=== PATIENT | female | born 1965 | race Caucasian/White ===

== ENCOUNTER → 2016-09-01 | Outpatient (CLI) | payer OTHER ==
--- NOTE | 2016-09-01 09:41 | REPMRS ---
Patient History The patient states she had a clinical breast exam in No known family history of cancer. Taking estrogen for 1 month. Digital Woman Screen Mammo: September 01, 2016 - Exam #: [id number] Bilateral CC and MLO view(s) were taken. Technologist: Codie Harrison, Technologist Prior study comparison: August 10, 2015, digital woman screen mammo performed at [facility]. March 19, 2014, right breast digital mammo diagnostic unilateral, performed at [facility]. FINDINGS: The breast tissue is heterogeneously dense. This may lower the sensitivity of mammography. There is a fairly symmetric fibroglandular pattern in both breasts. There has been no interval development of masses, areas of architectural distortion or clusters of microcalcifications typical of malignancy. No significant changes when compared with prior studies. ASSESSMENT: BI-RADS/ACR category 2 mammogram. Benign finding(s). Recommendation Routine screening mammogram of both breasts in 1 year (for women over age 40). This mammogram was interpreted with the aid of an FDA-approved computer-aided dectection system. Electronically Signed By: Camacho Joshi MD 09/01/16 0912
== END ==
LOC: M WHC 08:27
PROVIDERS: ATTEND Nurse Practitioner Family
DX: Z12.31 Encounter for screening mammogram for malignant neoplasm of breast (principal)

== ENCOUNTER → 2016-11-21 | Outpatient (CLI) | payer OTHER ==
[~2016-11-21] VITALS: Ht 165.1 cm; Wt 62.1 kg
[~2016-11-21] MED LIST: LIDOCAINE 2% INJ 100 MG/5 ML SDV (FOR ANES.) As Ordered ONE; NS 1,000 ML IV ONE; PROPOFOL 500 MG/50 ML VIAL As Ordered ONE; [UNRECOGNIZED DRUG - CODE] TD; ePHEDrine SULFATE 25 MG/5 ML(5MG/ML) SYRINGE As Ordered ONE
--- NOTE | 2016-11-21 13:18 | ROOR ---
Patient Name: Haylee Price Procedure Date: 11/21/2016 12:46 PM Date of : 1965 Age: 51 Room: [facility] Gender: Female Note Status: Finalized Procedure: Colonoscopy to Cecum + Cold and Hot Snare Polypectomy Indications: Screening for colorectal malignant neoplasm Providers: Brayden Hilario MD Referring MD: NEREYDA OCAMPO NP Requesting Provider: Medicines: Monitored Anesthesia Care Complications: No immediate complications. Procedure: Pre-Anesthesia Assessment: - The heart rate, respiratory rate, oxygen saturations, blood pressure, adequacy of pulmonary ventilation, and response to care were monitored throughout the procedure. The Colonoscope was introduced through the anus and advanced to the cecum, identified by appendiceal orifice and ileocecal valve. The colonoscopy was performed without difficulty. The patient tolerated the procedure well. The quality of the bowel preparation was excellent. Findings: The perianal and digital rectal examinations were normal. A large polyp was found in the rectum. The polyp was sessile. The polyp was removed with a hot snare. Polyp resection was incomplete. The resected tissue was retrieved. A medium polyp was found at 30 cm proximal to the anus. The polyp was pedunculated. The polyp was removed with a hot snare. Resection and retrieval were complete. The exam was otherwise without abnormality on direct and retroflexion views. Impression: - One large polyp in the rectum, removed with a hot snare. Incomplete resection. Resected tissue retrieved. - One medium polyp at 30 cm proximal to the anus, removed with a hot snare. Resected and retrieved. - The examination was otherwise normal on direct and retroflexion views. - The exam was otherwise normal to the cecum. Recommendation: - Patient has a contact number available for emergencies. The signs and symptoms of potential delayed complications were discussed with the patient. Return to normal activities tomorrow. Written discharge instructions were provided to the patient. - High fiber diet. - Discharge patient to home. - Continue present medications. - Await pathology results. - Telephone GI clinic for pathology results in 1 week. - Check Portal Online for Path Results.([email or web address]) - Refer to a surgeon at appointment to be scheduled. Brayden Hilario MD Brayden Hilario MD 11/21/2016 1:18:23 PM This report has been signed electronically. Number of Addenda: 0 Note Initiated On: 11/21/2016 12:46 PM Estimated Blood Loss: Estimated blood loss: none.
[2016-11-21 13:50] VITALS: BP 134/68
== END | disposition home or self-care (01) ==
LOC: M OPP 12:15
PROVIDERS: ATTEND Internal Medicine Gastroenterology
DX: Z12.11 Encounter for screening for malignant neoplasm of colon (principal); D12.8 Benign neoplasm of rectum; D12.5 Benign neoplasm of sigmoid colon; Z79.899 Other long term (current) drug therapy

== ENCOUNTER → 2016-12-16 | Day surgery (SDC) | payer OTHER ==
[~2016-12-16] VITALS: Ht 160 cm; Wt 62.6 kg
[~2016-12-16] MED LIST changes: +GLYCOPYRROLATE INJ 0.2 MG/ML 2 ML VIAL As Ordered ONE; +KETOROLAC 60 MG/2 ML VIAL (J1885) As Ordered ONE; +LIDOCAINE W/EPINEPHRINE 1% 20ML VIAL As Ordered ONE; +LR 1,000 ML IV ONE; +LR 1,000 ML IV SCH; +METOCLOPRAMIDE INJ 10MG/2ML VIAL (J2765) IV PRN; +MIDAZOLAM INJ 2 MG/2 ML VIAL (J2250) As Ordered ONE; +MORPHINE 2 MG/ML 1ML SYRINGE IV PRN; +NORCO, ANEXSIA 5/325MG TABLET (HYDROcodone/ACETAMINOPHEN) PO PRN; +NORCOTAB PO; -NS 1,000 ML IV ONE; +ONDANSETRON 4MG/2ML VIAL (J2405) As Ordered ONE; +ONDANSETRON 4MG/2ML VIAL (J2405) IV PRN; +PERCOCET 5MG/325MG TAB As Ordered ONE; +PROPOFOL 200 MG/20 ML VIAL As Ordered ONE; -PROPOFOL 500 MG/50 ML VIAL As Ordered ONE; +cefoTEtan INJ 2GM VIAL (S0074) As Ordered ONE; +fentaNYL 100 MCG/2 ML INJECTION (J3010) As Ordered ONE
[2016-12-16] MEDS: fentaNYL 100 MCG/2 ML INJECTION (J3010) IV PRN ×3 (12:57→13:11)
[2016-12-16] MEDS: PERCOCET 5MG/325MG TAB PO PRN ×2 (12:59→13:56)
[2016-12-16 15:30] VITALS: BP 110/68
--- NOTE | 2016-12-18 07:06 | RO ---
DATE OF PROCEDURE: 12/16/2016 PREOPERATIVE DIAGNOSIS: Rectal adenoma with high-grade dysplasia. POSTOPERATIVE DIAGNOSIS: Rectal adenoma with high-grade dysplasia. PROCEDURE PERFORMED: Transanal excision of 4 cm rectal polyp. SURGEON: Cirilo Rojas MD HOSPITAL ADMITTING CLERK: ANESTHESIA: Spinal. INDICATIONS FOR THE PROCEDURE: Patient is a 51-year-old woman who had undergone a initial routine screening mammogram and was found to have a large sessile polyp in the rectum. Biopsies were obtained that showed some high-grade dysplasia in a background of adenomatous tissue. The polyp is palpable on the left posterior wall of the rectum and she is now for a transanal excision of this polyp. OPERATIVE PROCEDURE: The patient had a subarachnoid block anesthetic placed. She was placed in a lithotomy position with her lower extremities in padded leg holders. The perineum was prepped and draped in a sterile fashion. Palpation revealed a flat fleshy mass primarily posteriorly, but also slightly to the left of the midline on the back wall of the rectum. It was possible to feel above the superior aspect of the polyp and to pull the lesion inferiorly somewhat. A Brooks anal speculum was inserted and it was possible to identify the lesion readily. This appeared amendable to a transanal excision. I injected approximately 10 mL of 1% Xylocaine with epinephrine into the tissues around and beneath the polyp to aid in hemostasis. Then, using handheld retractors, the right and subsequently left edge and the inferior border of the polyp were identified and incised with the cautery. Some sharp dissection was performed with Metzenbaum scissors in several areas. As the dissection was carried superiorly, a #3-0 Vicryl suture was placed in the mucosa just above the polyp to margaux this. The dissection carried across the superior aspect of the polyp and the entire lesion was elevated off of the underlying tissue and removed. At the most distal part of the polyp, actually just above the most distal part of the polyp a small portion of the muscle tissue of the rectal wall was excised down to the underlying fibrofatty tissue. At this point, the patient was given 2 grams of cefotetan for antibiotic coverage. The polyp was laid out on the back table and appeared to be approximately 4 cm in maximal diameter. The polyp was soft and fleshy and there was no evidence of ulceration. This was sent for permanent pathology. The wound was inspected and hemostasis was ensured with cautery. There did not appear to be any residual polyp at the edges of the wound. The deeper portions of the tissues of the rectal wall were approximated with some buried sutures of #3-0 chromic. The mucosa was closed transversely then with multiple interrupted simple sutures of #3-0 chromic and #3-0 Vicryl. The final inspection revealed a good closure with no bleeding. The patient tolerated the procedure well without apparent complication. She was transported to the recovery room in stable condition.
== END | disposition home or self-care (01) ==
LOC: M SDC 07:24
PROVIDERS: ATTEND Surgery
DX: D37.5 Neoplasm of uncertain behavior of rectum (principal); K62.1 Rectal polyp
CPT/HCPCS: 45171; 88305; J1885; J2250; J2405; J3010

== ENCOUNTER → 2017-05-31 | Outpatient (REF) | payer OTHER ==
[~2017-05-31] MED LIST changes: -GLYCOPYRROLATE INJ 0.2 MG/ML 2 ML VIAL As Ordered ONE; -KETOROLAC 60 MG/2 ML VIAL (J1885) As Ordered ONE; -LIDOCAINE 2% INJ 100 MG/5 ML SDV (FOR ANES.) As Ordered ONE; -LIDOCAINE W/EPINEPHRINE 1% 20ML VIAL As Ordered ONE; -LR 1,000 ML IV ONE; -LR 1,000 ML IV SCH; -METOCLOPRAMIDE INJ 10MG/2ML VIAL (J2765) IV PRN; -MIDAZOLAM INJ 2 MG/2 ML VIAL (J2250) As Ordered ONE; -MORPHINE 2 MG/ML 1ML SYRINGE IV PRN; -NORCO, ANEXSIA 5/325MG TABLET (HYDROcodone/ACETAMINOPHEN) PO PRN; -ONDANSETRON 4MG/2ML VIAL (J2405) As Ordered ONE; -ONDANSETRON 4MG/2ML VIAL (J2405) IV PRN; -PERCOCET 5MG/325MG TAB As Ordered ONE; -PROPOFOL 200 MG/20 ML VIAL As Ordered ONE; -cefoTEtan INJ 2GM VIAL (S0074) As Ordered ONE; -ePHEDrine SULFATE 25 MG/5 ML(5MG/ML) SYRINGE As Ordered ONE; -fentaNYL 100 MCG/2 ML INJECTION (J3010) As Ordered ONE
== END ==
LOC: M SFHCLERA 09:36
PROVIDERS: ATTEND Dermatology
DX: D36.11 Benign neoplasm of peripheral nerves and autonomic nervous system of face, head, and neck (principal)

== ENCOUNTER → 2017-09-13 | Outpatient (CLI) | payer OTHER | LOC: M WHC 08:24 | DX: Z12.31 Encounter for screening mammogram for malignant neoplasm of breast (principal) ==

== ENCOUNTER 2018-03-05 06:46 | Day surgery (SDC) | payer OTHER ==
[2018-03-05] MEDS: NS 1,000 ML IV (06:00)
[2018-03-05] MEDS ORDERED: LIDOCAINE 2% INJ 100 MG/5 ML SDV (FOR ANES.) As Ordered (07:38)
[2018-03-05] MEDS ORDERED: PROPOFOL 500 MG/50 ML VIAL As Ordered (07:38)
== END 2018-03-05 08:33 | disposition home or self-care (01) ==
LOC: M OPP 06:46
DX: Z86.03 Personal history of neoplasm of uncertain behavior (principal); K64.0 First degree hemorrhoids; K62.89 Other specified diseases of anus and rectum; M54.2 Cervicalgia; Z90.710 Acquired absence of both cervix and uterus; Z79.890 Hormone replacement therapy; Z09 Encounter for follow-up examination after completed treatment for conditions other than malignant neoplasm
CPT/HCPCS: 45380

== ENCOUNTER 2018-06-12 10:30 | Emergency (ER) | payer OTHER ==
[2018-06-12 11:14] LABS: BASO % 0.4 % (0.0-1.0); HEMATOCRIT 39.2 % (36.0-47.0); HEMOGLOBIN 13.2 g/dl (12.0-15.5); IMMATURE GRANULOCYTE % 0.3 % (0-3.0); LYMPH # 1.4 10^3/uL (1.5-4.5); LYMPH % 13.4 % (24.0-44.0); MEAN CORPUSCULAR HEMOGLOBIN 29.3 pg (27.0-33.0); MEAN CORPUSCULAR HGB CONC 33.7 g/dl (32.0-36.5); MEAN CORPUSCULAR VOLUME 86.9 fl (80.0-96.0); MONO # 0.5 10^3/uL (0.0-0.8); MONO % 4.9 % (0.0-5.0); NEUTROPHILS # 8.7 10^3/uL (1.8-7.7); PLATELET COUNT, AUTOMATED 262 10^3/uL (150-450); RED BLOOD COUNT 4.51 10^6/uL (4.00-5.40); RED CELL DISTRIBUTION WIDTH 12.2 % (11.5-14.5); WHITE BLOOD COUNT 10.7 10^3/uL (4.0-10.0)
[2018-06-12 11:45] LABS: ALBUMIN 3.8 GM/DL (3.2-5.2); ALBUMIN/GLOBULIN RATIO 1.12 (1.00-1.93); ALKALINE PHOSPHATASE 64 U/L (45-117); ALT/SGPT 17 U/L (12-78); ANION GAP 9 MEQ/L (8-16); AST/SGOT 13 U/L (7-37); BILIRUBIN,DIRECT 0.2 MG/DL (0.0-0.2); BILIRUBIN,TOTAL 0.6 MG/DL (0.2-1.0); BLOOD UREA NITROGEN 21 MG/DL (7-18); CALCIUM LEVEL 8.4 MG/DL (8.5-10.1); CARBON DIOXIDE LEVEL 25 MEQ/L (21-32); CHLORIDE LEVEL 106 MEQ/L (98-107); CK-MB VALUE MASS < 1.0 NG/ML (<3.6); CPK CREATINE PHOSPHOKINASE 64 U/L (26-192); CREATININE FOR GFR 0.55 MG/DL (0.55-1.30); FREE T4 1.28 NG/DL (0.76-1.46); GLOMERULAR FILTRATION RATE > 60.0 (>51); GLUCOSE, FASTING 96 MG/DL (70-100); MB/CK RELATIVE INDEX 1.56 (< OR =4); POTASSIUM SERUM 3.2 MEQ/L (3.5-5.1); SODIUM LEVEL 140 MEQ/L (136-145); TOTAL PROTEIN 7.2 GM/DL (6.4-8.2); TROPONIN I < 0.02 NG/ML (< 0.10)
[2018-06-12] MEDS: NS 1,000 ML IV (12:11)
== END 2018-06-12 13:24 | disposition home or self-care (01) ==
LOC: M ED 10:30
DX: R51 Headache (principal); R07.9 Chest pain, unspecified; F32.9 Major depressive disorder, single episode, unspecified; R06.02 Shortness of breath; Z79.899 Other long term (current) drug therapy; Z79.890 Hormone replacement therapy
CPT/HCPCS: 71045

== ENCOUNTER → 2018-09-14 | Outpatient (CLI) | payer OTHER ==
[~2018-09-14] MED LIST changes: +EFFE37.5 PO
--- NOTE | 2018-09-14 17:03 | REPMRS ---
Patient History The patient states she had a clinical breast exam in 08/2018. No known family history of cancer. Taking estrogen for 2 years 1 month. Digital Woman Screen Mammo: September 14, 2018 - Exam #: [id number] Bilateral CC and MLO view(s) were taken. Technologist: Leta Hassan, Technologist Prior study comparison: September 13, 2017, digital woman screen mammo performed at [facility]. September 01, 2016, digital woman screen mammo performed at [facility]. August 10, 2015, digital woman screen mammo performed at [facility]. FINDINGS: The breast tissue is heterogeneously dense. This may lower the sensitivity of mammography. There is a moderate amount of heterogeneously dense fibroglandular tissue which is fairly symmetric. There is no interval development of dominant mass, architectural distortion, or clustered microcalcification typical of malignancy. There has been no change in the appearance of the mammogram from the prior studies. 3-D tomosynthesis shows no additional findings. Assessment: BI-RADS/ACR category 1 mammogram. Negative Mammogram. Recommendation Routine screening mammogram of both breasts in 1 year (for women over age 40). This patient's Lifetime Breast Cancer RIsk is estimated at 7.5 %. This mammogram was interpreted with the aid of an FDA-approved computer-aided dectection system. Electronically Signed By: Robert Sanchez MD 09/14/18 [id number]
== END ==
LOC: M WHC 15:31
PROVIDERS: ATTEND Nurse Practitioner Family
DX: Z12.31 Encounter for screening mammogram for malignant neoplasm of breast (principal); Z92.23 Personal history of estrogen therapy

== ENCOUNTER 2019-02-03 08:41 | Emergency (ER) | payer OTHER ==
[~2019-02-03] VITALS: Ht 160 cm; Wt 63.3 kg
[~2019-02-03 08:41] MED LIST changes: +HYDR-3715 PO; -NORCOTAB PO
[2019-02-03 08:42] VITALS: BP 111/75
[2019-02-03] MEDS ORDERED: CETI10CA2 PO (09:08)
[2019-02-03] MEDS ORDERED: PRED20TA PO (09:08)
[2019-02-03] MEDS ORDERED: predniSONE 20 MG TAB PO ONE (09:15)
[2019-02-03] MEDS ORDERED: LORATADINE 10 MG TAB PO ONE (09:15)
== END 2019-02-03 09:24 | disposition home or self-care (01) ==
LOC: M ED 08:41
DX: L23.7 Allergic contact dermatitis due to plants, except food (principal); F41.9 Anxiety disorder, unspecified; Z79.899 Other long term (current) drug therapy; Z79.890 Hormone replacement therapy

== ENCOUNTER 2019-05-31 08:14 | Day surgery (SDC) | payer OTHER ==
[~2019-05-31] VITALS: Ht 160 cm; Wt 62.6 kg
[~2019-05-31 08:14] MED LIST changes: +CETI10CA2 PO; +NS 1,000 ML IV ONE; +PRED20TA PO
[2019-05-31] MEDS ORDERED: PROPOFOL 200 MG/20 ML VIAL As Ordered ONE (09:52)
[2019-05-31] MEDS ORDERED: LIDOCAINE 2% INJ 100 MG/5 ML SDV (FOR ANES.) As Ordered ONE (09:52)
--- NOTE | 2019-05-31 09:56 | ROOR ---
Patient Name: Haylee Price Procedure Date: 05/31/2019 9:28 AM Date of : 1965 Age: 54 Room: [facility] Gender: Female Note Status: Finalized Procedure: Total Colonoscopy to cecum + Bx. Indications: Colon polyps of uncertain behavior, Follow-up for history of colon polyps of uncertain behavior Providers: Brayden Hilario MD Referring MD: NEREYDA OCAMPO NP Requesting Provider: Medicines: Monitored Anesthesia Care Complications: No immediate complications. Procedure: Pre-Anesthesia Assessment: - The heart rate, respiratory rate, oxygen saturations, blood pressure, adequacy of pulmonary ventilation, and response to care were monitored throughout the procedure. The Colonoscope was introduced through the anus and advanced to the cecum, identified by appendiceal orifice and ileocecal valve. The colonoscopy was performed without difficulty. The patient tolerated the procedure well. The quality of the bowel preparation was excellent. Findings: The perianal and digital rectal examinations were normal. Non-bleeding internal hemorrhoids were found during retroflexion. The hemorrhoids were small and Grade I (internal hemorrhoids that do not prolapse). A small scar was found in the rectum. The scar tissue was healthy in appearance. Biopsies were taken with a cold forceps for histology. The exam was otherwise without abnormality on direct and retroflexion views. Impression: - Non-bleeding internal hemorrhoids. - Scar in the rectum. Biopsied. - The examination was otherwise normal on direct and retroflexion views. - The exam was otherwise normal to the cecum. Recommendation: - Patient has a contact number available for emergencies. The signs and symptoms of potential delayed complications were discussed with the patient. Return to normal activities tomorrow. Written discharge instructions were provided to the patient. - High fiber diet. - Discharge patient to home. - Continue present medications. - Await pathology results. - Telephone GI clinic for pathology results in 1 week. - Repeat colonoscopy in 5 years for surveillance based on pathology results. - Return to referring physician. - The findings and recommendations were discussed with the patient's family. Brayden Hilario MD Brayden Hilario MD 05/31/2019 9:55:49 AM Electronically signed by Brayden Hilario MD Number of Addenda: 0 Note Initiated On: 05/31/2019 9:28 AM Estimated Blood Loss: Estimated blood loss: none.
[2019-05-31 10:28] VITALS: BP 114/78
== END 2019-05-31 10:25 | disposition home or self-care (01) ==
LOC: M OPP 08:14
PROVIDERS: ATTEND Internal Medicine Gastroenterology
DX: K64.0 First degree hemorrhoids (principal); K62.89 Other specified diseases of anus and rectum; D37.4 Neoplasm of uncertain behavior of colon; Z86.03 Personal history of neoplasm of uncertain behavior; Z79.899 Other long term (current) drug therapy

== ENCOUNTER → 2019-06-03 | Outpatient (REF) | payer OTHER ==
[~2019-06-03] MED LIST changes: -NS 1,000 ML IV ONE
== END ==
LOC: M SFHCWAGY 13:29
PROVIDERS: ATTEND Nurse Practitioner Family
DX: R30.0 Dysuria (principal)

== ENCOUNTER → 2019-10-29 | Outpatient (CLI) | payer BC ==
--- NOTE | 2019-10-30 15:05 | REP ---
Clinical: Neck pain. Technique: AP, lateral, flexion/extension, bilateral oblique and open mouth views of the cervical spine. Findings: Straightening of normal lordosis is likely chronic. Moderate degenerative changes at C5-6 includes endplate sclerosis with disc space narrowing and early marginal spurring. Mild endplate sclerosis and disc space narrowing with marginal spurring at C6-7. 1 mm anterolisthesis at C3-4 level noted on flexion along with 2 mm retrolisthesis at the C4-5 level on extension. No acute fracture / compression injury or subluxation. Oblique views demonstrate relatively patent neural foramen. Open mouth view demonstrates normal C1-C2 articulation and odontoid process. Impression: Mild/moderate degenerative changes as described above. Electronically Signed by Price Lutz MD 10/30/2019 02:57 P
== END ==
LOC: M RAD 16:35
PROVIDERS: ATTEND Nurse Practitioner Family
DX: M50.322 Other cervical disc degeneration at C5-C6 level (principal)

== ENCOUNTER → 2019-11-14 | Outpatient (RCR) | payer BC | LOC: M PT 10-30 07:49 | PROVIDERS: ATTEND Nurse Practitioner Family | DX: M54.2 Cervicalgia (principal) ==

== ENCOUNTER 2019-12-12 07:00 | Outpatient (RCR) | payer BC | END 2019-12-15 | LOC: M PT 07:00 | PROVIDERS: ATTEND Nurse Practitioner Family | DX: Z51.89 Encounter for other specified aftercare (principal); M54.2 Cervicalgia ==

== ENCOUNTER 2019-12-24 07:00 | Outpatient (RCR) | payer BC | END 2020-01-14 | LOC: M PT 07:00 | PROVIDERS: ATTEND Nurse Practitioner Family | DX: M54.2 Cervicalgia (principal) ==

== ENCOUNTER → 2020-07-24 | Outpatient (CLI) | payer BC ==
--- NOTE | 2020-07-24 10:12 | REPMRS ---
Patient History The patient states she had a clinical breast exam in 07/2020. No known family history of cancer. Taking estrogen for 3 years 11 months. 3D TOMOSYNTHESIS WAS PERFORMED. [facility]%. [place] breast density c. Digital Woman Screen Mammo: July 24, 2020 - Exam #: [id number] Bilateral CC and MLO view(s) were taken. Technologist: Leta Hassan, Technologist Prior study comparison: September 14, 2018, bilateral digital woman screen mammo performed at [facility]. September 13, 2017, digital woman screen mammo performed at [facility]. FINDINGS: The breast tissue is heterogeneously dense. This may lower the sensitivity of mammography. There has been no change in the appearance of the mammogram from the prior studies. There is a moderate amount of residual fibroglandular tissue which is fairly symmetric. There is no interval development of dominant mass, areas of architectural distortion, or clustered microcalcification typical of malignancy. Assessment: BI-RADS/ACR category 1 mammogram. Negative Mammogram. Recommendation Routine screening mammogram in 1 year (for women over age 40). This mammogram was interpreted with the aid of an FDA-approved computer-aided dectection system. Electronically Signed By: Camacho Joshi MD 07/24/20 1012
--- NOTE | 2020-07-24 10:18 | DEXAMM ---
INDICATION: Z78.0 MENOPAUSAL. COMPARISON: None. TECHNIQUE: Bone density was measured using dual-energy x-ray absorptionmetry (DEXA). FINDINGS: AP SPINE L1-L4 BMD 1.115 g/cm2 Young Adult T-Score -0.6 Age Matched Z-Score 0.3. LT FEMUR, TOTAL BMD 0.796 g/cm2 Young Adult T-Score -1.7 Age Matched Z-Score -0.9. LT NECK BMD 0.751 g/cm2 Young Adult T-Score -2.1 Age Matched Z-Score -1.0. RT FEMUR, TOTAL BMD 0.769 g/cm2 Young Adult T-Score -1.9 Age Matched Z-Score -1.1. RT NECK BMD 0.668 g/cm2 Young Adult T-Score -2.7 Age Matched Z-Score -1.6. IMPRESSION: There is normal bone density of the spine. There is low bone density of the left hip. There is osteoporosis of the right hip. FOLLOW-UP: Recommendation for the next bone density exam: 2 years. <Electronically signed by Robert Sanchez > 07/24/20 1017
== END ==
LOC: M WHC 08:20
PROVIDERS: ATTEND Nurse Practitioner Family
DX: Z12.31 Encounter for screening mammogram for malignant neoplasm of breast (principal); Z78.0 Asymptomatic menopausal state

== ENCOUNTER → 2020-07-27 | Outpatient (CLI) | payer BC ==
[2020-07-27 09:55] LABS: ALBUMIN 3.7 GM/DL (3.2-5.2); ALT/SGPT 33 U/L (12-78); BILIRUBIN,TOTAL 0.5 MG/DL (0.2-1.0); BLOOD UREA NITROGEN 20 MG/DL (7-18); CALCIUM LEVEL 8.8 MG/DL (8.5-10.1); CARBON DIOXIDE LEVEL 27 MEQ/L (21-32); CHLORIDE LEVEL 108 MEQ/L (98-107); CREATININE FOR GFR 0.63 MG/DL (0.55-1.30); GLOMERULAR FILTRATION RATE > 60.0 (>51); GLUCOSE, FASTING 91 MG/DL (70-100); POTASSIUM SERUM 4.4 MEQ/L (3.5-5.1); SODIUM LEVEL 141 MEQ/L (136-145); TOTAL PROTEIN 6.5 GM/DL (6.4-8.2)
[2020-07-27 12:44] LABS: TOTAL 25(OH) VITAMIN D 24.1 NG/ML (30.0-100.0)
== END ==
LOC: M LAB 07:58
PROVIDERS: ATTEND Nurse Practitioner Family
DX: Z78.0 Asymptomatic menopausal state (principal)

== ENCOUNTER → 2021-04-07 | Outpatient (REF) | LOC: M EMP 07:52 | PROVIDERS: ATTEND Family Medicine | DX: Z11.52 Encounter for screening for COVID-19 (principal) ==

== ENCOUNTER → 2021-05-18 | Outpatient (REF) | payer BC | LOC: M SFHCWAGY 13:27 | PROVIDERS: ATTEND Advanced Practice Midwife | DX: R30.0 Dysuria (principal) ==

== ENCOUNTER 2021-06-22 09:51 | Emergency (ER) | payer OTHER, BC ==
[~2021-06-22] VITALS: Ht 160 cm; Wt 69.1 kg
--- OUTSIDE RECORDS SUMMARY | 2021-06-22 09:57 | CCD ---
Author Author [facility] Organization [facility] Address Unknown Phone Unavailable Care Team Providers Care Water Pollution Control Technician Name Role Phone Simin Griffin MD Unavailable Unavailable Simin Griffin MD Unavailable Unavailable Simin Griffin MD Unavailable Unavailable Simin Griffin MD Unavailable Unavailable Simin Griffin MD Unavailable Unavailable Simin Griffin MD Unavailable Unavailable Simin Griffin MD Unavailable Unavailable Simin Griffin MD Unavailable Unavailable Simin Griffin MD Unavailable Unavailable Simin Griffin MD Unavailable Unavailable Simin Griffin MD Unavailable Unavailable Simin Griffin MD Unavailable Unavailable Simin Griffin MD Unavailable Unavailable Simin Griffin MD Unavailable Unavailable Simin Griffin MD Unavailable Unavailable Simin Griffin MD Unavailable Unavailable Simin Griffin MD Unavailable Unavailable Simin Griffin MD Unavailable Unavailable Simin Griffin MD Unavailable Unavailable Simin Griffin MD Unavailable Unavailable Simin Griffin MD Unavailable Unavailable Simin Griffin MD Unavailable Unavailable Simin Griffin MD Unavailable Unavailable Simin Griffin MD Unavailable Unavailable Simin Griffin MD Unavailable Unavailable Simin Griffin MD Unavailable Unavailable Simin Griffin MD Unavailable Unavailable Simin Griffin MD Unavailable Unavailable Simin Griffin MD Unavailable Unavailable Simin Griffin MD Unavailable Unavailable Simin Griffin MD Unavailable Unavailable Simin Griffin MD Unavailable Unavailable Simin Griffin MD Unavailable Unavailable Simin Griffin MD Unavailable Unavailable Simin Griffin MD Unavailable Unavailable Simin Griffin MD Unavailable Unavailable Simin Griffin MD Unavailable Unavailable Simin Griffin MD Unavailable Unavailable Simin Griffin MD Unavailable Unavailable Simin Griffin MD Unavailable Unavailable Simin Griffin MD Unavailable Unavailable Simin Griffin MD Unavailable Unavailable Simin Griffin MD Unavailable Unavailable Simin Griffin MD Unavailable Unavailable Simin Griffin MD Unavailable Unavailable Simin Griffin MD Unavailable Unavailable Simin Griffin MD Unavailable Unavailable Simin Griffin MD Unavailable Unavailable Simin Griffin MD Unavailable Unavailable Simin Griffin MD Unavailable Unavailable Simin Griffin MD Unavailable Unavailable Simin Griffin MD Unavailable Unavailable Simin Griffin MD Unavailable Unavailable Simin Griffin MD Unavailable Unavailable Simin Griffin MD Unavailable Unavailable Simin Griffin MD Unavailable Unavailable Simin Griffin MD Unavailable Unavailable Simin Griffin MD Unavailable Unavailable Simin Griffin MD Unavailable Unavailable Simin Griffin MD Unavailable Unavailable Simin Griffin MD Unavailable Unavailable Simin Griffin MD Unavailable Unavailable Simin Griffin MD Unavailable Unavailable Simin Griffin MD Unavailable Unavailable Simin Griffin MD Unavailable Unavailable Simin Griffin MD Unavailable Unavailable Simin Griffin MD Unavailable Unavailable Simin Griffin MD Unavailable Unavailable Simin Griffin MD Unavailable Unavailable Simin Griffin MD Unavailable Unavailable Simin Griffin MD Unavailable Unavailable Simin Griffin MD Unavailable Unavailable Simin Griffin MD Unavailable Unavailable Simin Griffin MD Unavailable Unavailable Simin Griffin MD Unavailable Unavailable Simin Griffin MD Unavailable Unavailable Simin Griffin MD Unavailable Unavailable Simin Griffin MD Unavailable Unavailable Simin Griffin MD Unavailable Unavailable Simin Griffin MD Unavailable Unavailable Simin Griffin MD Unavailable Unavailable Simin Griffin MD Unavailable Unavailable Simin Griffin MD Unavailable Unavailable Simin Griffin MD Unavailable Unavailable Simin Griffin MD Unavailable Unavailable Simin Griffin MD Unavailable Unavailable Simin Griffin MD Unavailable Unavailable Simin Griffin MD Unavailable Unavailable Simin Griffin MD Unavailable Unavailable Simin Griffin MD Unavailable Unavailable Simin Griffin MD Unavailable Unavailable Simin Griffin MD Unavailable Unavailable Simin Griffin MD Unavailable Unavailable Simin Griffin MD Unavailable Unavailable Candy Morrison JEWEL HOLE FINISH OPENER Unavailable Unavailable MorirsonCandy leyva JEWEL HOLE FINISH OPENER Unavailable Unavailable Morrison, Candy JEWEL HOLE FINISH OPENER Unavailable Unavailable Morrison, Candy JEWEL HOLE FINISH OPENER Unavailable Unavailable Morrison, Candy JEWEL HOLE FINISH OPENER Unavailable Unavailable Morrison, Candy JEWEL HOLE FINISH OPENER Unavailable Unavailable Morrison, Candy JEWEL HOLE FINISH OPENER Unavailable Unavailable Morrison, Candy JEWEL HOLE FINISH OPENER Unavailable Unavailable Morrison, Candy JEWEL HOLE FINISH OPENER Unavailable Unavailable Morrison, Candy JEWEL HOLE FINISH OPENER Unavailable Unavailable Morrison, Candy JEWEL HOLE FINISH OPENER Unavailable Unavailable Morrison, Candy JEWEL HOLE FINISH OPENER Unavailable Unavailable Morrison, Candy JEWEL HOLE FINISH OPENER Unavailable Unavailable Hair, Sheri Adrienne PA Unavailable Unavailable Hair, Sheri Adrienne PA Unavailable Unavailable Hair, Sheri Adrienne PA Unavailable Unavailable Hair, Sheri Adrienne PA Unavailable Unavailable Hair, Sheri Adrienne PA Unavailable Unavailable Hair, Sheri Adrienne PA Unavailable Unavailable Hair, Sheri Adrienne PA Unavailable Unavailable Hair, Sheri Adrienne PA Unavailable Unavailable Hair, Sheri Adrienne PA Unavailable Unavailable Hair, Sheri Adrienne PA Unavailable Unavailable Re-disclosure Warning The records that you are about to access may contain information from federally-assisted alcohol or drug abuse programs. If such information is present, then the following federally mandated warning applies: This information has been disclosed to you from records protected by federal confidentiality rules (42 CFR part 2). The federal rules prohibit you from making any further disclosure of this information unless further disclosure is expressly permitted by the written consent of the person to whom it pertains or as otherwise permitted by 42 CFR part 2. A general authorization for the release of medical or other information is NOT sufficient for this purpose. The Federal rules restrict any use of the information to criminally investigate or prosecute any alcohol or drug abuse patient.The records that you are about to access may contain highly sensitive health information, the redisclosure of which is protected by Article 27-F of the [facility] Public Health law. If you continue you may have access to information: Regarding HIV / AIDS; Provided by facilities licensed or operated by the [facility] Office of Mental Health; or Provided by the [facility] Office for People With Developmental Disabilities. If such information is present, then the following [facility] mandated warning applies: This information has been disclosed to you from confidential records which are protected by state law. State law prohibits you from making any further disclosure of this information without the specific written consent of the person to whom it pertains, or as otherwise permitted by law. Any unauthorized further disclosure in violation of state law may result in a fine or chcf sentence or both. A general authorization for the release of medical or other information is NOT sufficient authorization for further disc losure. Allergies and Adverse Reactions Type Description Substance Reaction Status Data Source(s ) Allergy to substance Allergy to substance Allergy to substance PICHER ([facility]) Family History Family Member Name Family Member Gender Family Member Status Date o f Status Description Data Source(s) Unknown Male Problem MEDENT ([facility]) () - AGENT ORANGE Unknown Female Problem [facility] Unknown Female Problem MEDENT ([facility]) Unknown Female Problem MEDENT ([facility]) Unknown Female Problem MEDENT ([facility]) Encounters Encounter Providers Location Date Indications Data Source(s ) Rizwan Griffin MD: [address] [place] [phone], Ph. Attender: Rizwan Griffin MD [place] - [facility] Medical 05/13/2021 12:00:00 AM EDT [facility] Unknown [address] [facility] [id number] 03/02/2021 12:00:00 AM EDT eCW1 ([facility]) Outpatient [address] [facility] [address] [address] 12/23/2020 12:00:00 AM EDT eCW1 ([facility]) Unknown [address] [facility] [address] [address] 12/07/2020 12:00:00 AM EDT eCW1 ([facility]) Unknown [address] [facility] [address] [address] 07/27/2020 12:00:00 AM EST eCW1 ([facility]) Outpatient [address] [facility] [address] [address] 07/24/2020 12:00:00 AM EST eCW1 ([facility]) Outpatient Attender: Adrienne Denson Chris angel 06/26/2020 04:20:00 PM EST MEDENT ([facility]) Outpatient Attender: Candy Denson Giovana fuentes 06/12/2020 03:40:00 PM EST MEDENT ([facility]) Immunizations Vaccine Date Status Description Data Source(s) COVID-19 VACCINE Moderna 05/17/2021 12:00:00 AM EDT completed [facility] Vaccine Series Complete: YESThis Data wa s Submitted to [facility]. COVID-19 VACCINE Moderna 08/12/2020 12:00:00 AM EST completed [facility] Vaccine Series Complete: YESThis Data wa s Submitted to [facility]. COVID-19 VACCINE Moderna 07/15/2020 12:00:00 AM EST completed [facility] Vaccine Series Complete: NOThis Data was Submitted to [facility]. Medications Medication Brand Name Start Date Product Form Dose Route Admi nistrative Instructions Pharmacy Instructions Status Indications Reaction Description Data Source(s) Ergocalciferol 42009 UNT Oral Capsule [Drisdol] Drisdo l 1.25 MG (55649 UT) Drisdol 1.25 MG (90427 UT) 07/27/2020 12:00:00 AM EST 1.0 {capsule} active Drisdol 1.25 MG (60266 UT) eCW1 ([facility]) Alendronic acid 70 MG Oral Tablet [Fosamax] Fosamax 70 MG Fo samax 70 MG 07/27/2020 12:00:00 AM EST active Fosamax 70 MG eCW1 ([facility]) Ergocalciferol 20886 UNT Oral Capsule [Drisdol] Drisdo l 1.25 MG (27477 UT) Drisdol 1.25 MG (56268 UT) 07/27/2020 12:00:00 AM EST 1.0 {capsule} active Drisdol 1.25 MG (24204 UT) eCW1 ([facility]) Ergocalciferol 23572 UNT Oral Capsule [Drisdol] Drisdo l 1.25 MG (87358 UT) Drisdol 1.25 MG (20771 UT) 07/27/2020 12:00:00 AM EST 1.0 {capsule} active Drisdol 1.25 MG (06792 UT) eCW1 ([facility]) Alendronic acid 70 MG Oral Tablet [Fosamax] Fosamax 70 MG Fo samax 70 MG 07/27/2020 12:00:00 AM EST active Fosamax 70 MG eCW1 ([facility]) Ergocalciferol 10516 UNT Oral Capsule [Drisdol] Drisdo l 1.25 MG (30804 UT) Drisdol 1.25 MG (89062 UT) 07/27/2020 12:00:00 AM EST 1.0 {capsule} active Drisdol 1.25 MG (67916 UT) eCW1 ([facility]) Ergocalciferol 08074 UNT Oral Capsule [Drisdol] Drisdo l 1.25 MG (04833 UT) Drisdol 1.25 MG (94798 UT) 07/27/2020 12:00:00 AM EST 1.0 {capsule} active Drisdol 1.25 MG (62540 UT) eCW1 ([facility]) Alendronic acid 70 MG Oral Tablet [Fosamax] Fosamax 70 MG Fo samax 70 MG 07/27/2020 12:00:00 AM EST active Fosamax 70 MG eCW1 ([facility]) Alendronic acid 70 MG Oral Tablet [Fosamax] Fosamax 70 MG Fo samax 70 MG 07/27/2020 12:00:00 AM EST active Fosamax 70 MG eCW1 ([facility]) Alendronic acid 70 MG Oral Tablet [Fosamax] Fosamax 70 MG Fo samax 70 MG 07/27/2020 12:00:00 AM EST active Fosamax 70 MG eCW1 ([facility]) Insurance Providers Payer name Policy type / Coverage type Policy ID Covered democrat ID Covered democrat's relationship to shahid Policy Shahid Plan Information BS [place] Med[employer] Part B [id number] Self [employer] Commercial Premier HP [id number] Self Premier HDHP [employer] Commercial [id number] Self [id number] [employer] Commercial Essential Plan 1 [id number] Self Essential Plan 1 MVP Medicaid Commercial Essential Plan 1 [id number] Self Essential Plan 1 MVP HEALTH CARE [id number] SP [id number] MVP HEALTH CARE [id number] SP [id number] MVP HEALTH CARE [id number] SP [id number] MVP Gold Commercial [id number] Self [id number] MVP Gold Commercial [id number] Self [id number] MVP Gold Commercial [id number] [id number] Self [id number] MVP Health Care Health Maintenance Organization (HMO) [id number] Self [id number] BS [place] Trad/MX Commercial 780 P/C [id number] Self 780 P/C [facility] PHY [id number] SP [id number] SELF PAY P 000 [id number] S 000 [employer] BCBS P [id number] S [id number] BC[employer] [place] 280/780 [id number] SP [id number] [employer] BC-BS PPO 306 [id number] SP [id number] NSJ3 [id number] BCBS [place] PPO 302/307 [id number] SP [id number] [facility] [id number] SP [id number] BS [place] Trad/MX Medigap Part B [id number] Self [id number] ANSI-Commercial [id number] [facility] O [id number] S [id number] ANSI-Commercial [id number] [facility] Health Care Health Maintenance Organization (HMO) [id number] Self [id number] Problems, Conditions, and Diagnoses Code Display Name Description Problem Type Effective Dates Data Source(s) M81.0 [id number] Age-related osteoporosis without current pathological fracture Problem 07/27/2020 12:00:00 AM EST eCW1 ([facility]) E55.9 [id number] Vitamin D deficiency Problem 07/27/2020 12:0 0:00 AM EST eCW1 ([facility]) Surgeries/Procedures No Information Results ID Date Data Source [id number] 04/07/2021 07:53:00 AM EDT [facility] Name Value Range Interpretation Code Description Data Genevieve rce(s) Supporting Document(s) SARS coronavirus 2 RNA [Presence] in Res piratory specimen by SKY with probe detection NEGATIVE [facility] This lab was ordered by [facility] a nd reported by [facility]. ID Date Data Source [id number] 11/06/2020 12:00:00 AM EDT [facility] Name Value Range Interpretation Code Description Data Genevieve rce(s) Supporting Document(s) SARS-CoV2 Rapid Antigen Negative [facility]. ID Date Data Source [id number] 06/17/2020 12:00:00 AM EST [facility] Name Value Range Interpretation Code Description Data Genevieve rce(s) Supporting Document(s) SARS coronavirus 2 Ag [facility] This lab was ordered by [facility] and reported by [facility]. ID Date Data Source [id number] 07/27/2020 08:26:00 AM EST MEDENT ([facility]) Name Value Range Interpretation Code Description Data Genevieve rce(s) Supporting Document(s) Calcidiol [Mass/volume] in Serum or Plasma 24.1 ng/mL 30.0-100.0 MEDENT ([facility]) <content>note:<nlbl:demographic_changed></content>
<content>note:<nlbl:demog raphic_changed></content>
<content></content> ID Date Data Source [id number] 07/27/2020 08:26:00 AM EST MEDENT ([facility]) Name Value Range Interpretation Code Description Data Genevieve rce(s) Supporting Document(s) Glucose, Fasting 91 mg/dL 70-100 MEDENT ([facility]) Creatinine For GFR 0.63 mg/dL 0.55-1.30 MEDENT ([facility]) Blood Urea Nitrogen 20 mg/dL 7-18 MEDENT ([facility]) Potassium Serum 4.4 meq/L 3.5-5.1 MEDENT ([facility]) Glomerular Filtration Rate Laboratory test result [facility] <content>Units are mL/min/1.73 m2</content>
<content></content>
<content>Chronic Kidney Disease Staging per NKF:</content>
<content></content>
<content>Stage I & II GFR >=60 Normal to Mildly Decreased</content>
<content>Stage III GFR 30- 59 Moderately Decreased</content>
<content>Stage IV GFR 15-29 Severely Decreased</content>
<content>Stage V GFR <15 Very Little GFR Left</content>
<content>ESRD GFR <15 on SUGAR TRUCKER</content>
<content></content> Sodium Level 141 meq/L 136-145 MEDENT ([facility]) Chloride Level 108 meq/L 98-107 MEDENT ([facility]) Anion Gap 6 meq/L 8-16 MED[facility] ([facility] [facility] Carbon Dioxide Level 27 meq/L 21-32 MEDENT ([facility]) Ast/Sgot 21 U/L 7-37 MEDENT ([facility]) Calcium Level 8.8 mg/dL 8.5-10.1 MEDENT ([facility]) Alkaline Phosphatase 83 U/L 45-117 MEDENT ([facility]) Bilirubin,Total 0.5 mg/dL 0.2-1.0 MEDENT ([facility]) Alt/SGPT 33 U/L 12-78 MEDENT ([place] [facility]) Albumin 3.7 GM/DL 3.2-5.2 MEDENT ([facility]) Albumin/Globulin Ratio 1.3 1.2-2.2 MEDENT ([facility]) Total Protein 6.5 GM/DL 6.4-8.2 MEDENT ([facility]) ID Date Data Source VITAMIN D [id number] 07/27/2020 12:00:00 AM EST eCW1 ([facility]) Name Value Range Interpretation Code Description Data Genevieve rce(s) Supporting Document(s) 24.1 30.0-100.0 TOTAL 25(OH) VITAMIN D eC W1 ([facility]) ID Date Data Source Comprehensive Metabolic Profile (CMP) 07/27/2020 12:00:00 AM EST eCW1 ([facility]) Name Value Range Interpretation Code Description Data Genevieve rce(s) Supporting Document(s) 91 70-100 GLUCOSE, FASTING eCW1 ([facility]) 141 136-145 SODIUM LEVEL eCW1 ([facility]) > 60.0 >51 GLOMERULAR FILTRATION RATE eCW 1 ([facility]) 0.63 0.55-1.30 CREATININE FOR GFR eCW1 ([facility]) 20 7-18 BLOOD UREA NITROGEN eCW1 ([facility]) 4.4 3.5-5.1 POTASSIUM SERUM eCW1 ([facility]) 27 21-32 CARBON DIOXIDE LEVEL eCW1 ([facility]) 108 98-107 CHLORIDE LEVEL eCW1 ([facility]) 8.8 8.5-10.1 CALCIUM LEVEL eCW1 ([facility]) 21 7-37 AST/SGOT eCW1 ([facility]) 83 45-117 ALKALINE PHOSPHATASE eCW1 ([facility]) 0.5 0.2-1.0 BILIRUBIN,TOTAL eCW1 ([facility]) 33 12-78 ALT/SGPT eCW1 ([facility]) 6.5 6.4-8.2 TOTAL PROTEIN eCW1 ([facility]) 3.7 3.2-5.2 ALBUMIN eCW1 ([facility]) 1.3 1.2-2.2 ALBUMIN/GLOBULIN RATIO eCW1 ([facility]) ID Date Data Source Dexa, Full Body 07/24/2020 12:00:00 AM EST eCW1 ([facility]) Name Value Range Interpretation Code Description Data Genevieve rce(s) Supporting Document(s) Dexa, Full Body eCW1 ([facility]) Procedure Social History Code Duration Value Status Description Data Source(s ) Smoking 12/23/2020 12:00:00 AM EDT Never Smoker completed Never S moker eCW1 ([facility]) Smoking 12/23/2020 12:00:00 AM EDT Never Smoker completed Never S moker eCW1 ([facility]) Smoking 07/24/2020 12:00:00 AM EST Never Smoker completed Never S moker eCW1 ([facility]) Smoking 07/24/2020 12:00:00 AM EST Never Smoker completed Never S moker eCW1 ([facility]) Smoking 07/24/2020 12:00:00 AM EST Never Smoker completed Never S moker eCW1 ([facility]) Smoking 06/26/2020 12:00:00 AM EST Patient has never smoked co mpleted Patient has never smoked MEDENT ([facility]) Vital Signs ID Date Data Source UNK Name Value Range Interpretation Code Description Data Source(s) Body weight 152.0 [lb_av] 152.0 [lb_av] eCW1 ([facility]) Body height 65 [in_i] 65 [in_i] eCW1 ([facility]) Body mass index (BMI) [Ratio] 25.29 kg/m2 25.29 kg/m2 eCW1 ([facility]) Systolic blood pressure 116 mm[Hg] 116 mm[Hg] e 1 ([facility]) Diastolic blood pressure 76 mm[Hg] 76 mm[Hg] eCW1 ([facility]) Body weight 151 [lb_av] 151 [lb_av] eCW1 ([facility]) Body weight 68.49 kg 68.49 kg eCW1 ([facility]) Body height 65 [in_i] 65 [in_i] eCW1 ([facility]) Body mass index (BMI) [Ratio] 25.12 kg/m2 25.12 kg/m2 [facility] ([facility]) Systolic blood pressure 110 mm[Hg] 110 mm[Hg] e CW1 ([facility]) Diastolic blood pressure 75 mm[Hg] 75 mm[Hg] eCW1 ([facility]) Systolic blood pressure 111 mm[Hg] 111 mm[Hg] M EDENT ([facility]) Diastolic blood pressure 74 mm[Hg] 74 mm[Hg] MEDENT ([facility], [facility]) Heart rate 78 /min 78 /min MEDENT ([facility], [facility]) Respiratory rate 18 /min 18 /min MEDENT ( [facility], [facility]) Oxygen saturation in Arterial blood by Pulse oximetry 98 % 98 % MEDENT ([facility], [facility]) Body temperature 97.7 [degF] 97.7 [degF] MEDENT ([facility], [facility]) Body weight 147.00 [lb_av] 147.00 [lb_av] MEDEN T ([facility], [facility]) Systolic blood pressure 122 mm[Hg] 122 mm[Hg] EDENT ([facility]) Diastolic blood pressure 78 mm[Hg] 78 mm[Hg] MEDENT ([facility], [facility]) Body weight 145.00 [lb_av] 145.00 [lb_av] MEDEN T ([facility], [facility]) Heart rate 79 /min 79 /min MEDENT ([facility]) Respiratory rate 16 /min 16 /min MEDENT ( [facility], [facility]) Oxygen saturation in Arterial blood by Pulse oximetry 98 % 98 % MEDENT ([facility], [facility]) Body temperature 98.0 [degF] 98.0 [degF] MEDENT ([facility], [facility]) Body height 65 [in_i] 65 [in_i] MEDENT ([facility], [facility]) 5'5" Body mass index (BMI) [Ratio] 24.1 kg/m2 24.1 k g/[facility]) Patient Treatment Plan of Care Planned Activity Planned Date Details Description Data Source (s) Ergocalciferol 46362 UNT Oral Capsule [Drisdol] 07/27/2020 12:00:00 AM EST eCW1 ([facility]) Alendronic acid 70 MG Oral Tablet [Fosamax] 07/27/2020 12:00:00 AM EST eCW1 ([facility]) Alendronic acid 70 MG Oral Tablet [Fosamax] 07/27/2020 12:00:00 AM EST eCW1 ([facility]) Ergocalciferol 78631 UNT Oral Capsule [Drisdol] 07/27/2020 12:00:00 AM EST eCW1 ([facility]) Alendronic acid 70 MG Oral Tablet [Fosamax] 07/27/2020 12:00:00 AM EST eCW1 ([facility]) Ergocalciferol 43711 UNT Oral Capsule [Drisdol] 07/27/2020 12:00:00 AM EST eCW1 ([facility])
--- OUTSIDE RECORDS SUMMARY | 2021-06-22 09:57 | CCD ---
Author Organization Unknown Address [address] [place] [address] Phone [phone] Care Team Providers Care Block Chopper Hand Name Role Phone [phone] Covid Vaccine Nurse Unavailable Unavailable Allergies None recorded. Medications None recorded. Problems None recorded. Procedures None recorded. Results Lab Results None recorded. Past Encounters 05/13/2021 Administration of SARS-CoV-2 mRNA Vaccine Rizwan Griffin MD: [address] [place] [phone], Ph. Social History None recorded. Vaccine List None recorded. Plan of Care Reminders Provider Appointments None recorded. Lab None recorded. Referral None recorded. Procedures None recorded. Surgeries None recorded. Imaging None recorded. Vitals None recorded.
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
--- OUTSIDE RECORDS SUMMARY | 2021-06-22 13:19 | CCD ---
Author Author [facility] Organization [facility] Address Unknown Phone Unavailable Care Team Providers Care Senior Cost Analyst Name Role Phone Simin Griffin MD Unavailable [...] Unavailable Unavailable Simin Griffin MD Unavailable Unavailable Siimn Griffin MD Unavailable Unavailable Simin Griffin MD [...] Unavailable Unavailable Simin Griffin MD Unavailable Unavailable iSmin Griffin MD Unavailable Unavailable Simin Griffin MD [...] Unavailable Simin Griffin MD Unavailable Unavailable Simin Griffni MD Unavailable Unavailable Simin Griffin MD Unavailable [...] Simin Griffin MD Unavailable Unavailable Candy Morrison GOVERNMENT PROFESSOR Unavailable Unavailable MorrisonCandy leyva GOVERNMENT PROFESSOR Unavailable Unavailable Morrison, Candy GOVERNMENT PROFESSOR Unavailable Unavailable Morrison, Candy GOVERNMENT PROFESSOR Unavailable Unavailable Morrison, Candy GOVERNMENT PROFESSOR Unavailable Unavailable Morrison, Candy GOVERNMENT PROFESSOR Unavailable Unavailable Morrison, Candy GOVERNMENT PROFESSOR Unavailable Unavailable Morrison, Candy GOVERNMENT PROFESSOR Unavailable Unavailable Morrison, Candy GOVERNMENT PROFESSOR Unavailable Unavailable Morrison, Candy GOVERNMENT PROFESSOR Unavailable Unavailable Morrison, Candy GOVERNMENT PROFESSOR Unavailable Unavailable Morrison, Candy GOVERNMENT PROFESSOR Unavailable Unavailable Morrison, Candy GOVERNMENT PROFESSOR Unavailable Unavailable Hair, Sheri Adrienne PA Unavailable [...] is protected by Article 27-F of the [facility] Public Health law. If you continue you may have access to information: Regarding HIV / AIDS; Provided by facilities licensed or operated by the [facility] Office of Mental Health; or Provided by the [facility] Office for People With Developmental Disabilities. If such information is present, then the following [facility] mandated warning applies: This information has [...] law may result in a fine or usp sentence or both. A general authorization for the release of medical or other information is NOT sufficient authorization for further disc losure. Allergies and Adverse Reactions Type Description Substance Reaction Status Data Source(s ) Allergy to substance Allergy to substance Allergy to substance [place] ([facility]) Family History Family Member Name Family Member Gender Family Member Status Date o f Status Description Data Source(s) Unknown Male Problem [facility] ([facility]) () - AGENT ORANGE Unknown Female Problem [facility] Unknown Female Problem [facility] ([facility]) Unknown Female Problem MED[facility] ([facility]) Unknown Female Problem [facility] ([facility]) Encounters Encounter Providers Location Date Indications Data Source(s ) Rizwan Griffin MD: [address] [place] [phone], Ph. Attender: Rizwan Griffin MD PA - [facility] Medical 05/13/2021 12:00:00 AM EDT [place] ([facility]) Unknown [address] [facility] [address] 03/02/2021 12:00:00 AM EDT eCW1 ([facility]) Outpatient [address] [facility] [address] 12/23/2020 12:00:00 AM EDT eCW1 ([facility]) Unknown [address] [facility] [address] 12/07/2020 12:00:00 AM EDT eCW1 ([facility]) Unknown [address] [facility] [address] 07/27/2020 12:00:00 AM EST eCW1 ([facility]) Outpatient [address] [facility] [address] 07/24/2020 12:00:00 AM EST eCW1 ([facility]) Outpatient Attender: Adrienne Denson Chris angel 06/26/2020 04:20:00 PM EST [facility] ([facility]) Outpatient Attender: Candy Denson Giovana fuentes 06/12/2020 03:40:00 PM EST MEDENT ([facility]) Immunizations Vaccine Date Status Description Data Source(s) COVID-19 VACCINE Moderna 05/17/2021 12:00:00 AM EDT completed [facility] Vaccine Series Complete: YESThis Data wa s Submitted to [facility]. COVID-19 VACCINE Moderna 08/12/2020 12:00:00 AM EST completed [facility] Vaccine Series Complete: YESThis Data wa s Submitted to [facility]. COVID-19 VACCINE Moderna 07/15/2020 12:00:00 AM EST completed [facility] Vaccine Series Complete: NOThis Data was Submitted to [facility]. Medications Medication Brand Name Start Date Product Form Dose Route Admi nistrative Instructions Pharmacy Instructions Status Indications Reaction Description Data Source(s) Ergocalciferol 57502 UNT Oral Capsule [Drisdol] Drisdo l 1.25 MG (16741 UT) Drisdol 1.25 MG (78687 UT) 07/27/2020 12:00:00 AM EST 1.0 {capsule} active Drisdol 1.25 MG (61851 UT) eCW1 ([facility]) Alendronic acid 70 MG Oral Tablet [Fosamax] Fosamax 70 MG Fo samax 70 MG 07/27/2020 12:00:00 AM EST active Fosamax 70 MG eCW1 ([facility]) Ergocalciferol 38940 UNT Oral Capsule [Drisdol] Drisdo l 1.25 MG (82428 UT) Drisdol 1.25 MG (61509 UT) 07/27/2020 12:00:00 AM EST 1.0 {capsule} active Drisdol 1.25 MG (35266 UT) eCW1 ([facility]) Ergocalciferol 74669 UNT Oral Capsule [Drisdol] Drisdo l 1.25 MG (57151 UT) Drisdol 1.25 MG (96933 UT) 07/27/2020 12:00:00 AM EST 1.0 {capsule} active Drisdol 1.25 MG (15434 UT) eCW1 ([facility]) Alendronic acid 70 MG Oral Tablet [Fosamax] Fosamax 70 MG Fo samax 70 MG 07/27/2020 12:00:00 AM EST active Fosamax 70 MG eCW1 ([facility]) Ergocalciferol 47793 UNT Oral Capsule [Drisdol] Drisdo l 1.25 MG (38922 UT) Drisdol 1.25 MG (36990 UT) 07/27/2020 12:00:00 AM EST 1.0 {capsule} active Drisdol 1.25 MG (77395 UT) eCW1 ([facility]) Ergocalciferol 97018 UNT Oral Capsule [Drisdol] Drisdo l 1.25 MG (26863 UT) Drisdol 1.25 MG (32471 UT) 07/27/2020 12:00:00 AM EST 1.0 {capsule} active Drisdol 1.25 MG (68820 UT) eCW1 ([facility]) Alendronic acid 70 MG Oral Tablet [Fosamax] Fosamax 70 MG Fo samax 70 MG 07/27/2020 12:00:00 AM EST active Fosamax 70 MG eCW1 ([facility]) Alendronic acid 70 MG Oral Tablet [Fosamax] Fosamax 70 MG Fo samax 70 MG 07/27/2020 12:00:00 AM EST active Fosamax 70 MG eCW1 ([facility]) Alendronic acid 70 MG Oral Tablet [Fosamax] Fosamax 70 MG Fo samax 70 MG 07/27/2020 12:00:00 AM EST active Fosamax 70 MG eCW1 ([facility]) Insurance Providers Payer name Policy type / Coverage type Policy ID Covered republican ID Covered republican's relationship to shahid Policy Shahid Plan Information BS [place] Medigap Part B [id number] Self [employer] Commercial Premier HP [id number] Self Premier HDHP [employer] Commercial [id number] Self [id number] [employer] Commercial Essential Plan 1 [id number] Self Essential Plan 1 MVP Medicaid Commercial Essential Plan 1 [id number] Self Essential Plan 1 [facility] [id number] SP [id number] [facility] [id number] SP [id number] [facility] [id number] SP [id number] [facility] Health Care Health Maintenance Organization (HMO) [id number] Self [id number] [facility] Gold Commercial [id number] Self [id number] P Gold Commercial [id number] Self [id number] P Gold Commercial [id number] [id number] Self [id number] [facility] Health Care Health Maintenance Organization (O) [id number] Self [id number] BS Jake Trad/MX Commercial 780 P/C [id number] Self 780 P/C [place] PHY [id number] SP [id number] SELF PAY P [id number] S 000 [employer] BCBS P [id number] S [id number] BCBS [facility] 280/[id number] SP [id number] [employer] NF [id number] SP [id number] [id number] BCBS [place] PPO 302/307 [id number] SP [id number] EXCELLUS BC-BS PPO 306 [id number] SP [id number] [facility] [id number] SP [id number] BS [place] Trad/MX Medigap Part B [id number] Self [id number] ANSI-Commercial [id number] [facility] O [id number] S [id number] ANSI-Commercial [id number] Problems, Conditions, and Diagnoses Code Display Name Description Problem Type Effective Dates Data Source(s) M81.0 60398108 Age-related osteoporosis without current pathological fracture Problem 07/27/2020 12:00:00 AM EST eCW1 ([facility]) E55.9 [id number] Vitamin D deficiency Problem 07/27/2020 12:0 0:00 AM EST eCW1 ([facility]) Surgeries/Procedures No Information Results ID Date Data Source [id number] 04/07/2021 07:53:00 AM EDT [facility] Name Value Range Interpretation Code Description Data Genevieve rce(s) Supporting Document(s) SARS coronavirus 2 RNA [Presence] in Res piratory specimen by SKY with probe detection NEGATIVE [facility] This lab was ordered by [facility] a nd reported by [facility]. ID Date Data Source [id number] 11/06/2020 12:00:00 AM EDT [facility] Name Value Range Interpretation Code Description Data Genevieve rce(s) Supporting Document(s) SARS-CoV2 Rapid Antigen Negative [facility] This lab was reported by [facility]. ID Date Data Source [id number] 06/17/2020 12:00:00 AM EST [facility] Name Value Range Interpretation Code Description Data Genevieve rce(s) Supporting Document(s) SARS coronavirus 2 Ag [facility] This lab was ordered by [facility] and reported by [facility]. ID Date Data Source [id number] 07/27/2020 08:26:00 AM EST MED[facility] ([facility]) Name Value Range Interpretation Code Description Data Genevieve rce(s) Supporting Document(s) Calcidiol [Mass/volume] in Serum or Plasma 24.1 ng/mL 30.0-100.0 MED[facility] ([facility]) <content>note:<nlbl:demographic_changed></content>
<content>note:<nlbl:demog raphic_changed></content>
<content></content> ID Date Data Source [id number] 07/27/2020 08:26:00 AM EST [facility] ([facility]) Name Value Range Interpretation Code Description Data Genevieve rce(s) Supporting Document(s) Glucose, Fasting 91 mg/dL 70-100 [facility] ([facility]) Creatinine For GFR 0.63 mg/dL 0.55-1.30 MED[facility] ([facility]) Blood Urea Nitrogen 20 mg/dL 7-18 MED[facility] ([facility]) Potassium Serum 4.4 meq/L 3.5-5.1 MED[facility] ([facility]) Glomerular Filtration Rate Laboratory test result [facility] <content>Units are mL/min/1.73 m2</content>
<content></content>
<content>Chronic Kidney Disease Staging per NKF:</content>
<content></content>
<content>Stage I & II GFR >=60 Normal to Mildly Decreased</content>
<content>Stage III GFR 30- 59 Moderately Decreased</content>
<content>Stage IV GFR 15-29 Severely Decreased</content>
<content>Stage V GFR <15 Very Little GFR Left</content>
<content>ESRD GFR <15 on ASSOCIATE PROFESSOR OF LITERATURE</content>
<content></content> Sodium Level 141 meq/L 136-145 MEDENT ([facility]) Chloride Level 108 meq/L 98-107 MED[facility] ([facility]) Anion Gap 6 meq/L 8-16 [facility] ([facility]) Carbon Dioxide Level 27 meq/L 21-32 MED[facility] ([facility]) Ast/Sgot 21 U/L 7-37 [facility] ([facility]) Calcium Level 8.8 mg/dL 8.5-10.1 MEDENT ([facility]) Alkaline Phosphatase 83 U/L 45-117 MED[facility] ([facility]) Bilirubin,Total 0.5 mg/dL 0.2-1.0 MED[facility] ([facility]) Alt/SGPT 33 U/L 12-78 [facility] ([facility]) Albumin 3.7 GM/DL 3.2-5.2 MED[facility] ([facility]) Albumin/Globulin Ratio 1.3 1.2-2.2 MED[facility] ([facility]) Total Protein 6.5 GM/DL 6.4-8.2 MEDENT ([facility]) ID Date Data Source VITAMIN D [id number] 07/27/2020 12:00:00 AM EST eCW1 ([facility]) Name Value Range Interpretation Code Description Data Genevieve rce(s) Supporting Document(s) 24.1 30.0-100.0 TOTAL 25(OH) VITAMIN D eC W1 ([facility]) ID Date Data Source Comprehensive Metabolic Profile (CMP) 07/27/2020 12:00:00 AM EST eCW1 ([facility]) Name Value Range Interpretation Code Description Data Genevieve rce(s) Supporting Document(s) 91 70-100 GLUCOSE, FASTING eCW1 ([facility]) 141 136-145 SODIUM LEVEL eCW1 ([facility] hospital) > 60.0 >51 GLOMERULAR FILTRATION RATE eCW 1 ([facility]) 0.63 0.55-1.30 CREATININE FOR GFR eCW1 ([facility]) 20 7-18 BLOOD UREA NITROGEN eCW1 ([facility]) 4.4 3.5-5.1 POTASSIUM SERUM eCW1 ([facility]) 27 21-32 CARBON DIOXIDE LEVEL eCW1 ([facility]) 108 98-107 CHLORIDE LEVEL eCW1 ([facility]) 8.8 8.5-10.1 CALCIUM LEVEL eCW1 ([facility]) 21 7-37 AST/SGOT eCW1 ([facility]) 83 45-117 ALKALINE PHOSPHATASE eCW1 ([facility]) 0.5 0.2-1.0 BILIRUBIN,TOTAL eCW1 ([facility]) 33 12-78 ALT/SGPT eCW1 ([facility]) 6.5 6.4-8.2 TOTAL PROTEIN eCW1 ([facility]) 3.7 3.2-5.2 ALBUMIN eCW1 ([facility]) 1.3 1.2-2.2 ALBUMIN/GLOBULIN RATIO eCW1 ([facility]) ID Date Data Source Dexa, Full Body 07/24/2020 12:00:00 AM EST eCW1 ([facility]) Name Value Range Interpretation Code Description Data Genevieve rce(s) Supporting Document(s) Dexa, Full Body eCW1 ([facility]) Procedure Social History Code Duration Value Status Description Data Source(s ) Smoking 12/23/2020 12:00:00 AM EDT Never Smoker completed Never S moker eCW1 ([facility]) Smoking 12/23/2020 12:00:00 AM EDT Never Smoker completed Never S moker eCW1 ([facility]) Smoking 07/24/2020 12:00:00 AM EST Never Smoker completed Never S moker eCW1 ([facility]) Smoking 07/24/2020 12:00:00 AM EST Never Smoker completed Never S moker eCW1 ([facility]) Smoking 07/24/2020 12:00:00 AM EST Never Smoker completed Never S moker eCW1 ([facility]) Smoking 06/26/2020 12:00:00 AM EST Patient has never smoked co mpleted Patient has never smoked MED[facility] ([facility]) Vital Signs ID Date Data Source UNK Name Value Range Interpretation Code Description Data Source(s) Body weight 152.0 [lb_av] 152.0 [lb_av] eCW1 ([facility]) Body height 65 [in_i] 65 [in_i] eCW1 ([facility]) Body mass index (BMI) [Ratio] 25.29 kg/m2 25.29 kg/m2 [facility] ([facility]) Systolic blood pressure 116 mm[Hg] 116 mm[Hg] e CW1 ([facility]) Diastolic blood pressure 76 mm[Hg] 76 mm[Hg] eCW1 ([facility]) Body weight 151 [lb_av] 151 [lb_av] eCW1 ([facility]) Body weight 68.49 kg 68.49 kg W1 ([facility]) Body height 65 [in_i] 65 [in_i] eCW1 ([facility]) Body mass index (BMI) [Ratio] 25.12 kg/m2 25.12 kg/m2 eCW1 ([facility]) Systolic blood pressure 110 mm[Hg] 110 mm[Hg] e CW1 ([facility]) Diastolic blood pressure 75 mm[Hg] 75 mm[Hg] eCW1 ([facility]) Systolic blood pressure 111 mm[Hg] 111 mm[Hg] M EDENT ([facility]) Diastolic blood pressure 74 mm[Hg] 74 mm[Hg] MEDENT ([facility]) Heart rate 78 /min 78 /min MEDENT ([facility]) Respiratory rate 18 /min 18 /min MEDENT ( [facility]) Oxygen saturation in Arterial blood by Pulse oximetry 98 % 98 % MEDENT ([facility]) Body temperature 97.7 [degF] 97.7 [degF] MEDENT ([facility]) Body weight 147.00 [lb_av] 147.00 [lb_av] MEDEN T ([facility]) Systolic blood pressure 122 mm[Hg] 122 mm[Hg] M EDENT ([facility]) Body weight 145.00 [lb_av] 145.00 [lb_av] MEDEN T ([facility]) Diastolic blood pressure 78 mm[Hg] 78 mm[Hg] MEDENT ([facility]) Heart rate 79 /min 79 /min MEDENT ([facility]) Respiratory rate 16 /min 16 /min [facility] ( [facility]) Oxygen saturation in Arterial blood by Pulse oximetry 98 % 98 % MED[facility] ([facility]) Body temperature 98.0 [degF] 98.0 [degF] MED[facility] ([facility]) Body height 65 [in_i] 65 [in_i] MEDENT ([facility]) 5'5" Body mass index (BMI) [Ratio] 24.1 kg/m2 24.1 k g/m2 [facility] ([facility]) Patient Treatment Plan of Care Planned Activity Planned Date Details Description Data Source (s) Ergocalciferol 89382 UNT Oral Capsule [Drisdol] 07/27/2020 12:00:00 AM EST eCW1 ([facility]) Alendronic acid 70 MG Oral Tablet [Fosamax] 07/27/2020 12:00:00 AM EST eCW1 ([facility]) Alendronic acid 70 MG Oral Tablet [Fosamax] 07/27/2020 12:00:00 AM EST eCW1 ([facility]) Ergocalciferol 35396 UNT Oral Capsule [Drisdol] 07/27/2020 12:00:00 AM EST eCW1 ([facility]) Alendronic acid 70 MG Oral Tablet [Fosamax] 07/27/2020 12:00:00 AM EST eCW1 ([facility]) Ergocalciferol 57196 UNT Oral Capsule [Drisdol] 07/27/2020 12:00:00 AM EST eCW1 ([facility])
[2021-06-22 14:00] VITALS: BP 127/68
== END 2021-06-22 13:47 | disposition home or self-care (01) ==
LOC: M ED 09:51
DX: S09.90XA Unspecified injury of head, initial encounter (principal); M54.2 Cervicalgia; M43.12 Spondylolisthesis, cervical region; V43.52XA Car driver injured in collision with other type car in traffic accident, initial encounter; Y92.89 Other specified places as the place of occurrence of the external cause; Y93.9 Activity, unspecified; Y99.9 Unspecified external cause status; Z79.890 Hormone replacement therapy

== ENCOUNTER → 2021-06-25 | Outpatient (REF) | payer BC ==
[2021-06-25 18:11] LABS: C REACTIVE PROTEIN QUANTITATIV < 0.30 MG/DL (0.00-0.30); RHEUMATOID FACTOR QUANT < 10.0 IU/ML (<15.0)
== END ==
LOC: M LAB REF 16:24
PROVIDERS: ATTEND Internal Medicine
DX: M25.50 Pain in unspecified joint (principal)

== ENCOUNTER → 2021-10-05 | Outpatient (REF) | LOC: M EMP 10:14 | PROVIDERS: ATTEND Family Medicine | DX: Z20.822 Contact with and (suspected) exposure to COVID-19 (principal) ==

== ENCOUNTER → 2021-10-12 | Outpatient (REF) ==
[2021-10-12 11:08] LABS: RSV AMPLIFICATION NEGATIVE (NEGATIVE)
== END ==
LOC: M EMP 10:02
PROVIDERS: ATTEND Family Medicine
DX: Z20.822 Contact with and (suspected) exposure to COVID-19 (principal)

== ENCOUNTER 2021-10-23 08:16 | Emergency (ER) | payer BC ==
[~2021-10-23] VITALS: Ht 160 cm; Wt 69.1 kg
[2021-10-23] MEDS ORDERED: ONDANSETRON 4MG/2ML VIAL IV ONE (09:50)
[2021-10-23] MEDS ORDERED: MORPHINE 2 MG/ML 1ML VIAL IV ONE (09:50)
[2021-10-23 09:57] LABS: BASO # 0.1 10^3/uL (0.0-0.2); BASO % 1.3 % (0.0-1.0); EOS # 0.1 10^3/uL (0.0-0.5); EOS % 2.4 % (0.0-3.0); HEMATOCRIT 37.5 % (36.0-47.0); HEMOGLOBIN 12.5 g/dl (12.0-15.5); LYMPH # 1.9 10^3/uL (1.5-5.0); LYMPH % 33.6 % (24.0-44.0); MEAN CORPUSCULAR HEMOGLOBIN 29.6 pg (27.0-33.0); MEAN CORPUSCULAR HGB CONC 33.3 g/dl (32.0-36.5); MEAN CORPUSCULAR VOLUME 88.7 fl (80.0-96.0); MONO # 0.6 10^3/uL (0.0-0.8); NEUTROPHILS # 2.9 10^3/uL (1.5-8.5); NEUTROPHILS % 52.5 % (36.0-66.0); PLATELET COUNT, AUTOMATED 259 10^3/uL (150-450); RED BLOOD COUNT 4.23 10^6/uL (4.00-5.40); WHITE BLOOD COUNT 5.5 10^3/uL (4.0-10.0)
[2021-10-23] MEDS ORDERED: ISOVUE-370 76% 100ML VIAL As Ordered ONE (10:09)
[2021-10-23 10:31] LABS: ALBUMIN 3.5 GM/DL (3.2-5.2); BILIRUBIN,DIRECT 0.1 MG/DL (0.0-0.2); BILIRUBIN,TOTAL 0.4 MG/DL (0.2-1.0); TOTAL PROTEIN 6.2 GM/DL (6.4-8.2)
[2021-10-23] MEDS ORDERED: PROT1TAB2 PO (12:17)
[2021-10-23 12:28] VITALS: BP 140/77
== END 2021-10-23 12:47 | disposition home or self-care (01) ==
LOC: M ED 08:16
DX: R93.5 Abnormal findings on diagnostic imaging of other abdominal regions, including retroperitoneum (principal); K20.90 Esophagitis, unspecified without bleeding; R00.1 Bradycardia, unspecified; K44.9 Diaphragmatic hernia without obstruction or gangrene; N20.0 Calculus of kidney; N85.4 Malposition of uterus; K42.9 Umbilical hernia without obstruction or gangrene; M51.36 Other intervertebral disc degeneration, lumbar region; M43.16 Spondylolisthesis, lumbar region; F32.9 Major depressive disorder, single episode, unspecified; Z79.890 Hormone replacement therapy
CPT/HCPCS: 71275; 74177; 80047; 80076; 83690; 84484; 85025; 93005; 96374; 96375; 99284; J2270; J2405; Q9967

== ENCOUNTER → 2021-11-12 | Outpatient (CLI) | payer BC ==
[~2021-11-12] MED LIST changes: +PROT1TAB2 PO
== END ==
LOC: M LABSMTC 10:59
PROVIDERS: ATTEND Anesthesiology
DX: Z01.812 Encounter for preprocedural laboratory examination (principal); Z20.822 Contact with and (suspected) exposure to COVID-19

== ENCOUNTER 2021-11-17 13:12 | Day surgery (SDC) | payer BC ==
[~2021-11-17] VITALS: Ht 160 cm; Wt 67.6 kg
[2021-11-17] MEDS ORDERED: NS 1,000 ML IV ONE (14:15)
[2021-11-17] MEDS ORDERED: propofoL 200 MG/20 ML VIAL As Ordered ONE (15:46)
[2021-11-17] MEDS ORDERED: fentaNYL 100 MCG/2 ML INJECTION As Ordered ONE (15:46)
[2021-11-17] MEDS ORDERED: LIDOCAINE 2% 100MG/5ML SDV (FOR ANES.) As Ordered ONE (15:46)
[2021-11-17 16:30] VITALS: BP 111/76
== END 2021-11-17 16:35 | disposition home or self-care (01) ==
LOC: M OPP 13:12
PROVIDERS: ATTEND Internal Medicine Gastroenterology
DX: R13.10 Dysphagia, unspecified (principal); R12 Heartburn; D13.0 Benign neoplasm of esophagus; K44.9 Diaphragmatic hernia without obstruction or gangrene; K22.2 Esophageal obstruction; K21.9 Gastro-esophageal reflux disease without esophagitis; Z79.899 Other long term (current) drug therapy
CPT/HCPCS: 43239; 43249; 88305; J3010

== ENCOUNTER → 2022-03-14 | Outpatient (REF) | LOC: M EMP 10:42 | PROVIDERS: ATTEND Family Medicine | DX: Z11.52 Encounter for screening for COVID-19 (principal) ==

== ENCOUNTER → 2022-04-06 | Outpatient (REF) | LOC: M LABSMTC 10:27 | PROVIDERS: ATTEND Family Medicine | DX: Z20.822 Contact with and (suspected) exposure to COVID-19 (principal) ==

== ENCOUNTER → 2022-04-10 | Outpatient (REF) | LOC: M LABSMTC 10:41 | PROVIDERS: ATTEND Family Medicine | DX: Z20.822 Contact with and (suspected) exposure to COVID-19 (principal) ==

== ENCOUNTER → 2022-05-30 | Outpatient (REF) | payer BC | LOC: M LAB REF 16:21 | PROVIDERS: ATTEND Student in an Organized Health Care Education/Training Program | DX: R30.0 Dysuria (principal) ==

== ENCOUNTER → 2022-06-16 | Outpatient (REF) | payer BC ==
[2022-06-17 13:17] LABS: APPEARANCE, URINE MANUAL CLOUDY (CLEAR); BILIRUBIN, URINE MANUAL NEGATIVE (NEGATIVE); BLOOD URINE MANUAL POSITIVE (NEGATIVE); COLOR, URINE MANUAL YELLOW (YELLOW); GLUCOSE, URINE (UA) MANUAL NEGATIVE (NEGATIVE); KETONE, URINE MANUAL NEGATIVE (NEGATIVE); LEUKOCYTE ESTERASE, URINE MAN POSITIVE (NEGATIVE); NITRITE, URINE MANUAL POSITIVE (NEGATIVE); PROTEIN, URINE MANUAL 2+ mg/dL (NEGATIVE); SPECIFIC GRAVITY,URINE MANUAL 1.025 (1.002-1.035); UROBILINOGEN, URINE MANUAL NORMAL (NORMAL)
[2022-06-17 13:49] LABS: SQUAMOUS EPITHELIAL CELL URINE LARGE AMOUNT /hpf (SMALL AMT); WBC, URINE TNTC /hpf (0-3)
[2022-06-17 13:50] LABS: BACTERIA, URINE LARGE AMOUNT; CALCIUM OXALATE CRYSTALS,URINE SMALL AMOUNT /hpf; HYALINE CAST, URINE NONE SEEN /lpf (0-1)
== END ==
LOC: M PLALAB 16:52
PROVIDERS: ATTEND Nurse Practitioner Family
DX: R39.15 Urgency of urination (principal)

== ENCOUNTER 2022-07-14 10:55 | Emergency (ER) | payer BC ==
[~2022-07-14] VITALS: Ht 160 cm; Wt 64.9 kg
[2022-07-14] MEDS ORDERED: NS 1,000 ML IV ONE (13:10)
[2022-07-14] MEDS ORDERED: KETOROLAC 30 MG/ML 1ML VIAL IV ONE (13:10)
[2022-07-14] MEDS ORDERED: ONDANSETRON 4MG 2ML VIAL IV ONE (13:10)
[2022-07-14 14:04] LABS: BASO % 0.4 % (0.0-1.0); EOS # 0.1 10^3/uL (0.0-0.5); EOS % 0.6 % (0.0-3.0); HEMOGLOBIN 12.9 g/dl (12.0-15.5); LYMPH # 1.4 10^3/uL (1.5-5.0); LYMPH % 12.9 % (24.0-44.0); MEAN CORPUSCULAR HGB CONC 32.3 g/dl (32.0-36.5); MEAN CORPUSCULAR VOLUME 89.9 fl (80.0-96.0); MONO # 1.2 10^3/uL (0.0-0.8); MONO % 11.3 % (2.0-8.0); NEUTROPHILS # 8.1 10^3/uL (1.5-8.5); NEUTROPHILS % 74.4 % (36.0-66.0); PLATELET COUNT, AUTOMATED 271 10^3/uL (150-450); RED BLOOD COUNT 4.45 10^6/uL (4.00-5.40); WHITE BLOOD COUNT 10.9 10^3/uL (4.0-10.0)
[2022-07-14 14:31] LABS: LIPASE 21 U/L (12-53); MAGNESIUM LEVEL 1.9 MG/DL (1.8-2.4)
[2022-07-14 14:32] LABS: CK-MB VALUE MASS < 1.0 NG/ML (<3.6)
[2022-07-14 14:33] LABS: ALBUMIN 3.4 G/DL (3.2-5.2); ALKALINE PHOSPHATASE 158 U/L (46-116); ALT/SGPT 88 U/L (7.0-40); AST/SGOT 43 U/L (<34); BILIRUBIN,DIRECT 0.2 MG/DL (<0.4); BILIRUBIN,TOTAL 0.6 MG/DL (0.3-1.2); CPK CREATINE PHOSPHOKINASE 46 U/L (34-145); LDH LACTATE DEHYDROGENASE 170 U/L (120-246); MB/CK RELATIVE INDEX 2.17 (< OR =4); TOTAL PROTEIN 6.9 G/DL (5.7-8.2)
[2022-07-14] MEDS ORDERED: ISOVUE-370 76% 100ML VIAL As Ordered ONE (15:04)
[2022-07-14 15:50] LABS: CK-MB VALUE MASS < 1.0 NG/ML (<3.6)
[2022-07-14 15:54] LABS: CPK CREATINE PHOSPHOKINASE 50 U/L (34-145)
[2022-07-14] MEDS ORDERED: METOCLOPRAMIDE INJ 10MG/2ML VIAL IV ONE (16:20)
[2022-07-14] MEDS ORDERED: REGL10TA6 PO (17:18)
[2022-07-14 17:40] VITALS: BP 103/66
== END 2022-07-14 17:59 | disposition home or self-care (01) ==
LOC: M ED 10:55
DX: U07.1 COVID-19 (principal); R11.2 Nausea with vomiting, unspecified; K21.9 Gastro-esophageal reflux disease without esophagitis; F32.A Depression, unspecified; F41.9 Anxiety disorder, unspecified; Z79.899 Other long term (current) drug therapy
CPT/HCPCS: 71046; 71275; 80047; 80076; 82550; 82553; 83605; 83615; 83690; 83735; 84484; 85025; 87486; 87581; 87633; 87798; 93005; 93041; 96361; 96374; 96375; 99284; J1100; J1885; J2405; J2765

== ENCOUNTER → 2023-05-15 | Outpatient (REF) ==
[~2023-05-15] MED LIST changes: +REGL10TA6 PO
== END ==
LOC: M EMP 08:27
PROVIDERS: ATTEND Family Medicine
DX: Z11.52 Encounter for screening for COVID-19 (principal)

== ENCOUNTER → 2023-07-20 | Outpatient (CLI) | payer BC ==
[~2023-07-20] MED LIST changes: -EFFE37.5 PO; +EFFE37.52 PO
== END ==
LOC: M WHC 16:00
PROVIDERS: ATTEND Advanced Practice Midwife
DX: Z13.820 Encounter for screening for osteoporosis (principal); M85.89 Other specified disorders of bone density and structure, multiple sites

== ENCOUNTER → 2023-07-20 | Outpatient (CLI) | payer BC | LOC: M WHC 15:27 | PROVIDERS: ATTEND Advanced Practice Midwife | DX: Z12.31 Encounter for screening mammogram for malignant neoplasm of breast (principal) ==

== ENCOUNTER 2023-07-24 21:38 | Emergency (ER) | payer BC ==
[~2023-07-24] VITALS: Ht 160 cm; Wt 69.6 kg
[2023-07-25 01:17] VITALS: BP 152/72; TEMP 98; O2SAT 100
== END 2023-07-25 01:50 | disposition home or self-care (01) ==
LOC: M ED 21:38
DX: S06.0X0A Concussion without loss of consciousness, initial encounter (principal); W00.0XXA Fall on same level due to ice and snow, initial encounter; F41.1 Generalized anxiety disorder; Y92.009 Unspecified place in unspecified non-institutional (private) residence as the place of occurrence of the external cause; Y93.89 Activity, other specified; Y99.9 Unspecified external cause status; Z79.899 Other long term (current) drug therapy

== ENCOUNTER → 2023-08-01 | Outpatient (CLI) | payer BC | LOC: M WHC 13:54 | PROVIDERS: ATTEND Advanced Practice Midwife | DX: R92.2 Inconclusive mammogram (principal); R92.332 Mammographic heterogeneous density, left breast; N60.12 Diffuse cystic mastopathy of left breast | CPT/HCPCS: 76642; 77065; G0279 ==

== ENCOUNTER → 2023-08-23 | Day surgery (SDC) | payer BC ==
[~2023-08-23] VITALS: Ht 160 cm; Wt 69.8 kg
[~2023-08-23] MED LIST changes: +MIDAZOLAM INJ 2MG/2ML VIAL As Ordered ONE; +ePHEDrine SULFATE 25 MG/5 ML(5MG/ML) SYRINGE As Ordered ONE; +fentaNYL 100 MCG/2 ML INJECTION As Ordered ONE; +propofoL 200 MG/20 ML VIAL As Ordered ONE
[2023-08-23] MEDS: LIDOCAINE 3.5 % 1ML OPHTH TOPICAL GEL OU ONE (06:00)
[2023-08-23] MEDS: CIPROFLOXACIN 0.3% OPHTH OINTMENT As Ordered ONE (12:33)
[2023-08-23] MEDS: LIDOCAINE 2% W/EPINEPHRINE 20ML VIAL **PRES FREE As Ordered ONE (12:33)
[2023-08-23] MEDS: POVIDONE-IODINE 5% OPHTH PREP SOL 30ML As Ordered ONE (12:34)
[2023-08-23 12:55] VITALS: BP 106/67; TEMP 97.2; O2SAT 95
== END | disposition home or self-care (01) ==
LOC: M SDC 10:35
PROVIDERS: ATTEND Ophthalmology
DX: H02.403 Unspecified ptosis of bilateral eyelids (principal); K21.9 Gastro-esophageal reflux disease without esophagitis; F32.A Depression, unspecified; Z79.899 Other long term (current) drug therapy
CPT/HCPCS: 15823; 88302; J2250; J3010

== ENCOUNTER → 2023-09-25 | Outpatient (REF) ==
[~2023-09-25] MED LIST changes: -MIDAZOLAM INJ 2MG/2ML VIAL As Ordered ONE; -ePHEDrine SULFATE 25 MG/5 ML(5MG/ML) SYRINGE As Ordered ONE; -fentaNYL 100 MCG/2 ML INJECTION As Ordered ONE; -propofoL 200 MG/20 ML VIAL As Ordered ONE
[2023-09-25 14:03] LABS: RSV AMPLIFICATION NEGATIVE (NEGATIVE)
== END ==
LOC: M EMP 11:35
PROVIDERS: ATTEND Family Medicine
DX: Z01.89 Encounter for other specified special examinations (principal)

== ENCOUNTER → 2023-12-04 | Outpatient (CLI) | payer BC ==
[2023-12-04 16:25] LABS: APPEARANCE, URINE HAZY (CLEAR); BACTERIA, URINE AUTO 3+ (NEGATIVE); BILIRUBIN, URINE AUTO NEGATIVE (NEGATIVE); BLOOD, URINE BLOOD 1+ (NEGATIVE); COLOR, URINE YELLOW (YELLOW); GLUCOSE, URINE (UA) AUTO NEGATIVE (NEGATIVE); KETONE, URINE AUTO NEGATIVE (NEGATIVE); LEUKOCYTE ESTERASE, URINE AUTO 1+ (NEGATIVE); MUCUS, URINE SMALL (NEGATIVE); NITRITE, URINE AUTO POSITIVE (NEGATIVE); PROTEIN, URINE AUTO NEGATIVE (NEGATIVE); RBC, URINE AUTO 4 /HPF (0-3); SPECIFIC GRAVITY URINE AUTO 1.021 (1.002-1.035); SQUAMOUS EPITHELIAL CELL UR AU 3 /HPF (0-6); UROBILINOGEN, URINE AUTO 0.2 mg/dL (0.0-2.0); WBC, URINE AUTO 35 /HPF (0-3)
== END ==
LOC: M LAB 15:27
PROVIDERS: ATTEND Advanced Practice Midwife
DX: R35.0 Frequency of micturition (principal)

== ENCOUNTER → 2024-03-27 | Outpatient (REF) | LOC: M EMP 15:05 | PROVIDERS: ATTEND Family Medicine | DX: Z02.89 Encounter for other administrative examinations (principal) ==

== ENCOUNTER → 2024-08-01 | Outpatient (CLI) | payer BC | LOC: M WHC 14:56 | PROVIDERS: ATTEND Advanced Practice Midwife | DX: Z12.31 Encounter for screening mammogram for malignant neoplasm of breast (principal); R92.333 Mammographic heterogeneous density, bilateral breasts ==

== ENCOUNTER → 2024-08-28 | Outpatient (REF) | LOC: M EMP 08:08 | PROVIDERS: ATTEND Family Medicine | DX: Z11.52 Encounter for screening for COVID-19 (principal); Z20.822 Contact with and (suspected) exposure to COVID-19 ==

== ENCOUNTER → 2025-02-13 | Outpatient (REF) | payer BC ==
[~2025-02-13] MED LIST changes: +CEFD1CAP9 PO; +KETO-204 PO
[2025-02-13 12:02] LABS: APPEARANCE, URINE CLOUDY (CLEAR); BACTERIA, URINE AUTO 3+ (NEGATIVE); BILIRUBIN, URINE AUTO NEGATIVE (NEGATIVE); BLOOD, URINE BLOOD 1+ (NEGATIVE); GLUCOSE, URINE (UA) AUTO NEGATIVE (NEGATIVE); KETONE, URINE AUTO NEGATIVE (NEGATIVE); LEUKOCYTE ESTERASE, URINE AUTO 2+ (NEGATIVE); MUCUS, URINE MODERATE (NEGATIVE); NITRITE, URINE AUTO POSITIVE (NEGATIVE); PROTEIN, URINE AUTO 1+ mg/dL (NEGATIVE); RBC, URINE AUTO 7 /HPF (0-3); SPECIFIC GRAVITY URINE AUTO 1.018 (1.002-1.035); SQUAMOUS EPITHELIAL CELL UR AU 19 /HPF (0-6); UROBILINOGEN, URINE AUTO 0.2 mg/dL (0.0-2.0); WBC, URINE AUTO TNTC /HPF (0-3)
== END ==
LOC: M LAB REF 11:24
PROVIDERS: ATTEND Physician Assistant Medical
DX: R30.0 Dysuria (principal)

== ENCOUNTER → 2025-03-05 | Outpatient (CLI) | payer BC ==
[2025-03-05 14:13] LABS: APPEARANCE, URINE HAZY (CLEAR); BACTERIA, URINE AUTO 1+ (NEGATIVE); BILIRUBIN, URINE AUTO NEGATIVE (NEGATIVE); BLOOD, URINE BLOOD NEGATIVE (NEGATIVE); GLUCOSE, URINE (UA) AUTO NEGATIVE (NEGATIVE); KETONE, URINE AUTO NEGATIVE (NEGATIVE); LEUKOCYTE ESTERASE, URINE AUTO NEGATIVE (NEGATIVE); MUCUS, URINE SMALL (NEGATIVE); NITRITE, URINE AUTO NEGATIVE (NEGATIVE); PROTEIN, URINE AUTO NEGATIVE (NEGATIVE); RBC, URINE AUTO 1 /HPF (0-3); SPECIFIC GRAVITY URINE AUTO 1.021 (1.002-1.035); SQUAMOUS EPITHELIAL CELL UR AU 8 /HPF (0-6); UROBILINOGEN, URINE AUTO 0.2 mg/dL (0.0-2.0); WBC, URINE AUTO 2 /HPF (0-3)
== END ==
LOC: M LAB 13:15
PROVIDERS: ATTEND Physician Assistant Medical
DX: R30.0 Dysuria (principal)

== ENCOUNTER → 2025-04-10 | Outpatient (CLI) | payer BC ==
[~2025-04-10] MED LIST changes: +E-Z-PAQUE 96% w/w SUSP 176 GM BTL As Ordered ONE; +PANT40TA29 PO; +VARIBAR NECTAR 40% w/v 240ML SUSP BTL As Ordered ONE; +VARIBAR PUDDING 40% w/v 230ML TUBE As Ordered ONE; +VENL37.598 PO
== END ==
LOC: M RAD 07:39
PROVIDERS: ATTEND Internal Medicine Gastroenterology
DX: R13.12 Dysphagia, oropharyngeal phase (principal)

== ENCOUNTER 2025-04-14 08:24 | Day surgery (SDC) | payer BC ==
[~2025-04-14] VITALS: Ht 160 cm; Wt 67.6 kg
[~2025-04-14 08:24] MED LIST changes: -E-Z-PAQUE 96% w/w SUSP 176 GM BTL As Ordered ONE; -VARIBAR NECTAR 40% w/v 240ML SUSP BTL As Ordered ONE; -VARIBAR PUDDING 40% w/v 230ML TUBE As Ordered ONE
[2025-04-14] MEDS ORDERED: LIDOCAINE 2% 100 MG/5 ML SDV (FOR ANES.) As Ordered ONE (09:34)
[2025-04-14 09:50] VITALS: TEMP 97.1
[2025-04-14 10:05] VITALS: BP 106/72; O2SAT 97
== END 2025-04-14 10:17 | disposition home or self-care (01) ==
LOC: M OPP 08:24
PROVIDERS: ATTEND Internal Medicine Gastroenterology
DX: K22.2 Esophageal obstruction (principal); K44.9 Diaphragmatic hernia without obstruction or gangrene; R13.10 Dysphagia, unspecified; Z79.899 Other long term (current) drug therapy

== ENCOUNTER → 2025-04-22 | Outpatient (REF) ==
[2025-04-22 10:50] LABS: SOFIA COVID ANTIGEN NEGATIVE (NEGATIVE)
== END ==
LOC: M EMP 10:06
PROVIDERS: ATTEND Family Medicine
DX: Z11.52 Encounter for screening for COVID-19 (principal)